=== PATIENT | male | born 1955 | race Caucasian/White ===

== ENCOUNTER → 2023-08-14 | Outpatient (CLI) | payer MEDICARE ==
[2023-08-14 20:57] LABS: ALT 16 U/L (10-49); AST 20 U/L (14-35); Albumin 4.3 g/dL (3.8-4.9); Albumin/Globulin Ratio 1.79 Ratio (1.60-3.17); Alkaline Phosphatase 76 U/L (41-126); BUN/Creat Ratio 14.08 Ratio (12.00-20.00); Blood Urea Nitrogen 18.3 mg/dL (9.0-27.0); Calcium 9.3 mg/dL (8.7-10.3); Carbon Dioxide 18.9 mmol/L (21.6-31.8); Chloride 104 mmol/L (96-109); Globulin 2.4 g/dL (1.6-3.3); Glucose 116 mg/dL (70-110); Potassium 4.5 mmol/L (3.5-5.5); Sodium 138 mmol/L (135-145); Total Bilirubin 1.1 mg/dL (0.3-1.2); Total Protein 6.7 g/dL (6.2-8.2)
== END | disposition home or self-care (01) ==
LOC: LABWHC1 13:54
PROVIDERS: ATTEND Internal Medicine Interventional Cardiology
DX: I48.11 Longstanding persistent atrial fibrillation (principal)
CPT/HCPCS: 36415; 80053; 84443

== ENCOUNTER 2023-09-11 05:57 | Day surgery (SDC) | payer MEDICARE ==
[~2023-09-11 05:57] MED LIST: LACTATED RINGERS 1,000 ML IV SCH; SODIUM CHLORIDE 0.9% 1,000 ML IV SCH
[2023-09-11] MEDS: LIDOCAINE 1% (10MG/ML) FOR IV START INTRADERMA PRN (06:46)
[2023-09-11] MEDS: SODIUM CHLORIDE 0.9% 500 ML 500 ML IV SCH (06:47)
[2023-09-11] MEDS: IV FLUID CONTINUATION 500 ML IV ONE (06:47)
[2023-09-11] MEDS: BENZOCAINE SPRAY 1 CAN TOPICAL ONE (07:10)
[2023-09-11] MEDS ORDERED: PROPOFOL 10 MG/ML 20 ML VIAL IV ONE (07:15)
[2023-09-11 07:19] VITALS: TEMP 97.8
--- NOTE | 2023-09-11 07:36 | P.PCN ---
Date of Procedure: 09/11/23 Description of Procedure: Indication: Atrial fibrillation Procedure Description: After explaining the procedure to the patient, it's risk and complications, blood pressure, heart rate and O2 saturation were monitored. The throat was sprayed with Cetacaine. Patient received sedation per anesthesia department. The probe was introduced into the esophagus without difficulty. Images were obtained. Following that, the probe was removed. There was no immediate complication. Findings: The left atrial size is mildly dilated, left atrial appendage is normal. Spontaneous contrast was noted. The left ventricle systolic function is moderately impaired with global hypokinesis and ejection fraction of 35 to 40%. The aortic valve, mitral valve and tricuspid valve appears to be normal. No pericardial fusion was noted. Descending thoracic aorta appears to be normal. Contrast bubble study revealed no shunting across the interatrial septum. Doppler: Pulse wave and color Doppler were obtained, and revealed mild to moderate multi jet mitral regurgitation with mild tricuspid regurgitation. There was no shunting by color Doppler study. Conclusion: 1. Mildly dilated left atrium with normal appearance of the left atrial appendage and spontaneous contrast 2. Moderate global hypokinesis of the left ventricle 3. Mild to moderate mitral regurgitation 4. Mild tricuspid regurgitation 5. No shunting across the interatrial septum Cardioversion: After obtaining HARI and sedated state synchronized biphasic cardioversion using 150 J was performed with jehovah's witness of sinus mechanism. There was no immediate complications.
[2023-09-11] MEDS: SODIUM CHLORIDE 0.9% 1,000 ML IV SCH (08:00)
[2023-09-11] MEDS: IV FLUID CONTINUATION 700 ML IV ONE (08:37)
[2023-09-11 08:40] VITALS: BP 110/73; PULSE 57; RESP 18
[2023-09-11] MEDS ORDERED: METOPROLOL SUCCINATE (ER) 50 MG TAB.ER.24H PO SCH (21:00)
[2023-09-11] MEDS ORDERED: ATORVASTATIN 40 MG TAB PO SCH (21:00)
[2023-09-12] MEDS ORDERED: RIVAROXABAN 20 MG TAB PO SCH (09:00)
[2023-09-12] MEDS ORDERED: AMIODARONE 200 MG TAB PO SCH (09:00)
== END 2023-09-11 08:52 | disposition home or self-care (01) ==
LOC: OR 05:57
PROVIDERS: ATTEND Internal Medicine Interventional Cardiology
DX: I08.1 Rheumatic disorders of both mitral and tricuspid valves (principal); E78.5 Hyperlipidemia, unspecified; I25.10 Atherosclerotic heart disease of native coronary artery without angina pectoris; I48.0 Paroxysmal atrial fibrillation; I71.43 Infrarenal abdominal aortic aneurysm, without rupture; I42.8 Other cardiomyopathies; Z79.02 Long term (current) use of antithrombotics/antiplatelets; Z79.82 Long term (current) use of aspirin; Z88.0 Allergy status to penicillin; Z88.1 Allergy status to other antibiotic agents; Z88.8 Allergy status to other drugs, medicaments and biological substances; Z79.01 Long term (current) use of anticoagulants; Z87.891 Personal history of nicotine dependence
CPT/HCPCS: 93312; 93320; 93325; 92960; J2704

== ENCOUNTER → 2023-10-10 | Outpatient (CLI) | payer MEDICARE ==
[2023-10-10 15:25] LABS: ALT 23 U/L (10-49); AST 23 U/L (14-35); Albumin 4.4 g/dL (3.8-4.9); Albumin/Globulin Ratio 1.76 Ratio (1.60-3.17); Alkaline Phosphatase 69 U/L (41-126); BUN/Creat Ratio 12.08 Ratio (12.00-20.00); Blood Urea Nitrogen 15.7 mg/dL (9.0-27.0); Calcium 9.1 mg/dL (8.7-10.3); Carbon Dioxide 21.3 mmol/L (21.6-31.8); Chloride 104 mmol/L (96-109); Chol/HDL Ratio 3.13 Ratio; Globulin 2.5 g/dL (1.6-3.3); Glucose 98 mg/dL (70-110); Potassium 4.1 mmol/L (3.5-5.5); Sodium 138 mmol/L (135-145); Total Bilirubin 0.8 mg/dL (0.3-1.2); Total Protein 6.9 g/dL (6.2-8.2); VLDL Calculation 14.18 mg/dL (5.00-40.00)
[2023-10-10 15:49] LABS: Basophils # (A) 0.03 X 10*3/uL (0.00-0.10); Basophils % (A) 0.7 %; Eosinophils # (A) 0.01 X 10*3/uL (0.04-0.35); Eosinophils % (A) 0.2 %; HCT 51.2 % (39.6-50.0); HGB 17.2 g/dL (13.0-17.0); Lymphocytes # (A) 1.13 X 10*3/uL (0.90-5.00); Lymphocytes % (A) 24.6 %; MCH 34.5 pg (27.0-32.0); MCHC 33.6 g/dL (32.0-37.0); MCV 102.8 FL (80.0-97.0); Mean Platelet Volume 12.3 FL (9.5-12.2); Monocytes # (A) 0.65 X 10*3/uL (0.20-1.00); Monocytes % (A) 14.2 %; NRBC Per 100 WBC 0 X 10*3/uL (0.00-0.01); Neutrophils # (A) 2.76 X 10*3/uL (1.80-7.70); Neutrophils % (A) 60.1 %; Platelet Count 82 X 10*3/uL (140-440); RBC 4.98 X 10*6/uL (4.40-5.60); RBC Morphology Normal (Normal); RDW 13.5 % (11.5-14.5); WBC 4.59 X 10*3/uL (4.50-10.00)
== END | disposition home or self-care (01) ==
LOC: LABWHC1 08:01
PROVIDERS: ATTEND Internal Medicine Interventional Cardiology
DX: R73.9 Hyperglycemia, unspecified (principal)
CPT/HCPCS: 36415; 80053; 80061; 83036; 83880; 85025

== ENCOUNTER 2023-11-18 10:48 | Inpatient (IN) | payer MEDICARE ==
[~2023-11-18 10:48] MED LIST changes: +CLOPIDOGREL 75 MG TAB ONE; +HEPARIN SODIUM 1,000 UN/ML (10ML VL) ONE; -LACTATED RINGERS 1,000 ML IV SCH; +LIDOCAINE 1% (PF) 10 MG/ML (30 ML SDV) ONE; +SODIUM CHLORIDE 0.9% 1,000 ML BAG ONE; -SODIUM CHLORIDE 0.9% 1,000 ML IV SCH; +SODIUM CHLORIDE 0.9% 500 ML BAG ONE; +VERAPAMIL 2.5 MG/ML 4 ML VIAL ONE; +fentaNYL (PF) 50 MCG/ML 2 ML AMP ONE
[2023-11-18] MEDS: IOPAMIDOL-370 200ML BTL INJ ONE (10:48)
[2023-11-18] MEDS ORDERED: METOPROLOL TARTRATE 50 MG TAB ONE (20:55)
[2023-11-18] MEDS ORDERED: SACUBITRIL/VALSARTAN 24 MG-26 MG TABLET PO ONE (20:56)
[2023-11-18] MEDS ORDERED: ATORVASTATIN 40 MG TAB ONE (20:56)
[2023-11-18] MEDS ORDERED: HYDROcodone/APAP 5-325MG 1 EACH TAB ONE (21:05)
[2023-11-19] MEDS ORDERED: DAPAGLIFLOZIN PROPANEDIOL 5 MG TABLET ONE (07:17)
[2023-11-19] MEDS ORDERED: SACUBITRIL/VALSARTAN 24 MG-26 MG TABLET PO ONE (07:17)
[2023-11-19] MEDS ORDERED: ASPIRIN 81 MG ONE (07:17)
[2023-11-19] MEDS ORDERED: CLOPIDOGREL 75 MG TAB ONE (07:18)
[2023-11-19] MEDS ORDERED: METOPROLOL TARTRATE 50 MG TAB ONE (07:18)
--- NOTE | 2023-12-27 14:16 | CC ---
CARDIAC CATHETERIZATION REPORT Mr. Aranda is a 68-year-old male, known history of hypertension, hyperlipidemia, history of cardiomyopathy and atrial fibrillation, who had a drop on his ejection fraction on a stress test and in view of that, recommendation made regarding coronary angiography. The procedure as well as risks and complications were discussed with the patient, who was in full understanding and agreement. PROCEDURE DESCRIPTION: The patient was brought to the labor economics professor in a fasting, semi-sedated state after receiving fentanyl and Benadryl. Using Xylocaine anesthesia and Seldinger technique, a 6-Pashto sheath was introduced in the right radial artery. Selective right and left coronary angiography performed using 5-Pashto 4-bend right and left chest catheters. Multiple views of the coronary artery including terrell-axial views were obtained. The right Celestino was used to cross the aortic valve. Images of the coronary arteries were performed. PCI: After removing the catheter, a 6-Pashto AL1 guiding catheter was introduced and after cannulating the right coronary ostium, a 0.014 balanced medium weight J-wire was advanced across the lesion, positioned distally. Subsequently, a 2.5 x 12 mm NC Trek balloon was advanced and multiple inflations at 8 atmospheres were done. Following that, the balloon was removed and a [place] Eye IVUS catheter was introduced and that revealed calcified lesion of moderate degree with a landing zone measuring 3 to 3.5 mm in diameter. The patient had diffuse disease in the mid and distal segment of the RCA as well. After removing the IVUS catheter, a 2.75 x 28 mm Xience Skypoint stent was deployed and post dilated to 16 atmospheres. After removing the balloon, repeat IVUS imaging was performed. Subsequently, a 3.5 x 20 mm NC Trek balloon was advanced and two inflations at 10 atmospheres were done. After the last inflation, after appropriate wait, the balloon and the guidewire were withdrawn back in the guiding catheter. Images were obtained. Repeated those images, revealed stable successful stenting. At that point, the guiding catheter, the balloon, and the guidewire removed. The sheath was removed. Hemostasis was obtained with deployment of the TR band. There was no immediate complication. The patient was returned to his room in stable condition. Of note, the patient received 7000 units of intravenous heparin, his ACT was followed. He received an oral loading dose of clopidogrel. He had no significant chest discomfort or EKG changes with the inflations. FINDINGS: 1. Fluoroscopy: There was significant calcification involving the LAD and the right coronary artery. 2. Left main: This is a short-sized vessel bifurcating into left circumflex, left anterior descending artery. Left main coronary artery has no significant obstructive disease. 3. Left anterior descending artery: This is a large-sized vessel reaching to the apex with a wraparound apex segment giving rise to a moderately-sized diagonal branch in mid segment. The LAD at the takeoff of the first septal design engineering intern has an eccentric 20% to 30% plaque, the rest of the vessel has no high-grade stenosis. 4. Left circumflex: This is a large nondominant vessel giving rise to a large obtuse marginal branch, the obtuse marginal branch in the proximal segment has a tubular lesion of about 30% without any significant obstructive disease. 5. Right coronary artery: This is a large dominant vessel bifurcating into PDA and posterolateral segment branches. The proximal mid segment of the RCA has a 99% stenosis and sequential lesion. Subsequently, the vessel is diffusely diseased. There was no significant flow into the PDA. 6. Collaterals: There is collateral from the left anterior descending artery and the left circumflex toward the right PDA and PLV. LEFT VENTRICULOGRAM: Not performed. HEMODYNAMICS: There was no gradient across the aortic valve. The left ventricular end-diastolic pressure was 12 to 16 mmHg. CONCLUSION: 1. Severe obstructive disease in the long segment of the RCA. 2. Mild disease in the proximal LAD and moderate disease in the first obtuse marginal branch. 3. Successful stenting of the proximal mid segment of the RCA with reduction of stenosis from 99% to less than 5% with diffuse intimal disease in the mid and distal segment. RECOMMENDATIONS: The patient will be continued on aspirin and Plavix for 1 week, then we will stop the aspirin and continue on Plavix and anticoagulation in addition to aggressive coronary risk modification attempting to maintain LDL below 70 mg/dL. Those findings and recommendations were discussed with the patient and his family, and they are in full understanding and agreement. Duration of procedure is 49 minutes. [id number] / IJN: [id number] /
== END 2023-11-19 10:08 | disposition home or self-care (01) | DRG 287 ==
LOC: 6NMEDSUR 10:48
PROVIDERS: ADMIT Internal Medicine Interventional Cardiology; ATTEND Internal Medicine Interventional Cardiology
PROC: 4A023N7 Measurement of Cardiac Sampling and Pressure, Left Heart, Percutaneous Approach (ICD-10-PCS; principal; 2023-11-18 07:00)
PROC: B2111ZZ Fluoroscopy of Multiple Coronary Arteries using Low Osmolar Contrast (ICD-10-PCS; 2023-11-18 07:00)
PROC: 4A02XM4 Measurement of Cardiac Total Activity, External Approach (ICD-10-PCS; 2023-11-18 07:00)
DX: I25.10 Atherosclerotic heart disease of native coronary artery without angina pectoris (principal); I10 Essential (primary) hypertension; I08.1 Rheumatic disorders of both mitral and tricuspid valves; I48.91 Unspecified atrial fibrillation; E78.00 Pure hypercholesterolemia, unspecified; I73.9 Peripheral vascular disease, unspecified; I42.9 Cardiomyopathy, unspecified; Z88.1 Allergy status to other antibiotic agents; Z88.8 Allergy status to other drugs, medicaments and biological substances
CPT/HCPCS: 92978; 93458

== ENCOUNTER → 2024-02-21 | Outpatient (CLI) | payer MEDICARE ==
[2024-02-21 10:31] LABS: HCT 48.8 % (39.6-50.0); HGB 16.8 g/dL (13.0-17.0); MCH 35.5 pg (27.0-32.0); MCHC 34.4 g/dL (32.0-37.0); MCV 103.2 FL (80.0-97.0); Mean Platelet Volume 11.8 FL (9.5-12.2); NRBC Per 100 WBC 0 X 10*3/uL (0.00-0.01); Platelet Count 118 X 10*3/uL (140-440); RBC 4.73 X 10*6/uL (4.40-5.60); RDW 12.6 % (11.5-14.5); WBC 6.66 X 10*3/uL (4.50-10.00)
[2024-02-21 10:47] LABS: Blood Urea Nitrogen 16.9 mg/dL (9.0-27.0); Carbon Dioxide 20.4 mmol/L (21.6-31.8); Chloride 107 mmol/L (96-109); Potassium 4.6 mmol/L (3.5-5.5); Sodium 139 mmol/L (135-145)
== END | disposition home or self-care (01) ==
LOC: LABPAT 07:20
PROVIDERS: ATTEND Internal Medicine Clinical Cardiac Electrophysiology
DX: Z01.812 Encounter for preprocedural laboratory examination (principal); I48.11 Longstanding persistent atrial fibrillation
CPT/HCPCS: 80051; 82565; 84520; 85027

== ENCOUNTER 2024-02-24 05:32 | Day surgery (SDC) | payer MEDICARE ==
[2024-02-24] MEDS: SODIUM CHLORIDE 0.9% 1,000 ML IV SCH (06:34)
[2024-02-24] MEDS: IV FLUID CONTINUATION 1,000 ML IV ONE (06:34)
[2024-02-24 06:35] LABS: Basophils # (A) 0.1 k/uL (0-0.2); Basophils % (A) 1 %; Eosinophils # (A) 0.3 k/uL (0-0.7); Eosinophils % (A) 4 %; HCT 51.5 % (39.0-53.0); HGB 17.1 gm/dL (13.0-17.5); Lymphocytes # (A) 2.2 k/uL (1.0-4.8); Lymphocytes % (A) 31 %; MCH 35.5 pg (25.0-35.0); MCHC 33.2 g/dL (31.0-37.0); MCV 107.1 fL (80.0-100.0); Macrocytosis Moderate; Mean Platelet Volume 8.5; Monocytes # (A) 0.4 k/uL (0-1.0); Monocytes % (A) 6 %; Neutrophils # (A) 4.1 k/uL (1.3-7.7); Neutrophils % (A) 57 %; Platelet Count 112 k/uL (150-450); RBC 4.81 m/uL (4.30-5.90); RDW 12.5 % (11.5-15.5); WBC 7.2 k/uL (3.8-10.6)
[2024-02-24 06:48] LABS: ALT 21 U/L (4-49); AST 22 U/L (17-59); African American GFR (CKD) 88 (>60 ml/min/1.73 sqM); Albumin 4.5 g/dL (3.5-5.0); Alkaline Phosphatase 82 U/L (38-126); Anion Gap 9 mmol/L; Blood Urea Nitrogen 17 mg/dL (9-20); Calcium 9.4 mg/dL (8.4-10.2); Carbon Dioxide 22 mmol/L (22-30); Chloride 109 mmol/L (98-107); Glucose 97 mg/dL (74-99); Non-African American GFR(CKD) 77 (>60 ml/min/1.73 sqM); Potassium 4.4 mmol/L (3.5-5.1); Sodium 140 mmol/L (137-145); Total Bilirubin 1.2 mg/dL (0.2-1.3); Total Protein 7.7 g/dL (6.3-8.2)
[2024-02-24] MEDS: HEPARIN SOD,PORK IN 0.45% NACL 25,000 UNIT in 0.45% NACL 1 250ML.BAG IV ONE (07:36)
[2024-02-24] MEDS: LIDOCAINE 1% INJ 10MG/ML (20 ML MDV) SQ ONE (08:10)
[2024-02-24] MEDS: IOPAMIDOL-370 100ML BTL INJ ONE (10:06)
--- NOTE | 2024-02-24 10:45 | P.EPPROC ---
- EP Procedure Note Electrophysiology Procedure Note: PROCEDURE A. fib ablation with PVI, left atrial septal ablation DIAGNOSIS Persistent atrial fibrillation, symptomatic, refractory to therapy and associated cardiomyopathy RESULT No left atrial appendage mass seen on intracardiac echo, mildly enlarged left atrium, right atrial enlargement, normal LV function Very complex right pulmonary venous anatomy with complex branching pattern of right inferior, right middle and right superior pulmonary veins Large left inferior pulmonary vein Successful A. fib ablation/pulmonary vein isolation of all veins using cryo- ablation Complete entrance block in all 4 veins confirmed Left atrial septal ablation No evidence for phrenic nerve injury Esophageal deflection YES Electrical cardioversion with a synchronized shock across the chest YES PROCEDURE DETAILS Written informed consent prior to procedure. Patient brought to the EP lab. General anesthesia given. Heparin administered. ACT maintained above 300 seconds Both groins prepped and draped per protocol and venous sheaths placed. Esophagus intubated, circa catheter for temperature monitoring an endoscope for possible esophageal deflection. Phrenic nerve monitoring performed. Esophageal temperature monitoring performed. Esophageal deflection performed if circa catheter overlapping with the balloon or circa temperature less than 27.5C Intracardiac echocardiography performed. Pericardium evaluated. Left atrial appendage evaluated. Left atrium evaluated along with pulmonary veins Transseptal catheterization performed under fluoroscopic guidance and intracardiac echo guidance Cryoablation sheath exchanged, balloon catheter along with achieve catheter placed in the left atrium. Pulmonary veins isolated in the following sequence: Left superior pulmonary vein followed by left inferior pulmonary vein, followed by right inferior pulmonary vein and lastly right superior pulmonary vein. Phrenic nerve stimulation along with capture thresholds within the SVC and right superior pulmonary vein to identify the phrenic nerve proximity to the cryo- balloon. Pulmonary veins isolated and confirmed with entrance and exit block. Phrenic nerve integrity confirmed at the end of the procedure Ablation of the left atrial septum performed with cannulation of the superior branch of the right inferior or the inferior branch of the right superior vein to achieve ablation of the posterior septum of the left atrium. Ablation of electrograms confirmed Electrical cardioversion performed for persistence of atrial fibrillation despite successful ablation. Diagnostic catheters for the high right atrium, His bundle, coronary sinus placed. LA and RA pressures recorded LA pressure: 14/10/09 Diagnostic EP study with coronary sinus pacing and recording Baseline measurements: In sinus rhythm AV node Wenckebach block 340 ms, AH 91, HV 50 ms WI interval 189 ms, QRS 123 ms and QT interval 450 ms Venous sheaths were removed and hemostasis assured with a closure device. Patient extubated and transferred to recovery Increase procedural time During ablation multiple attempts had to be made to move the esophagus a safe distance of the from the pulmonary vein draining cryoablation, to avoid excessive thermal cooling of the esophagus This took extra time and effort to keep the esophagus a safe distance away from the cryoablation balloon. This procedure took extra long simply for the pulmonary veins on account of an extremely complex right-sided pulmonary venous anatomy. While the patient had right inferior, right middle and right superior pulmonary veins the anatomy, the branching pattern and the takeoff and angulations were extremely unusual especially for the right middle pulmonary vein. In addition the left-sided veins were large and required multiple attempts for good occlusion. 2 lesions each were delivered 1 more anteriorly and the other more posteriorly simply because of the size of the pulmonary vein, to cover the antrum of each vein PROCEDURES PERFORMED Diagnostic EP study CS pacing and recording Left and right transseptal catheterization Catheter the mapping of the tachycardia Intracardiac echocardiography Pulmonary vein isolation with transseptal and comprehensive EPS, [id number] Extended procedure duration Linear ablation, left atrium, +[id number] Electrical cardioversion with a synchronized shock across the chest [id number]
--- NOTE | 2024-02-24 10:47 | P.PRLE ---
RE: Hubert Aranda Dear Nanda Hubert underwent an EP study and ablation of his pulmonary veins and the left atrial septum. He will continue Xarelto without interruption for the next 2 months and then subsequently the decision to be made based on his Mj Vasc score Thank you for entrusting me with the care of the patient Warm regards Sincerely Nilay Dorado
--- NOTE | 2024-02-24 11:01 | P.HPCAR ---
History of Present Illness This is Dr. Dorado dictating an H/P on this patient The patient was interviewed and examined IMPRESSION / ASSESSMENT: Persistent atrial fibrillation with associated cardiomyopathy Symptoms of tiredness and fatigue Difficult rhythm control with medical treatment Coronary artery disease single-vessel stenting to the RCA in the past On guideline directed heart failure medications and anticoagulation PLAN: A-fib ablation, continue anticoagulation HPI History of atrial fibrillation for over 1 year but over the last 1 year atrial fibrillation has been difficult to control and successfully maintain sinus rhythm In addition he has had coronary artery status post stenting to the RCA During atrial fibrillation he had associated cardiomyopathy with global hypokinesis His symptoms include tiredness and fatigue Denies any fever chills cough expectoration Denies any syncope chest pain angina ROS: No fever chills or rigors, no cough, phlegm or expectoration, no nausea, vomiting or diarrhea, no hematuria, dysuria, no musculoskeletal complaints, no strokes or seizures, no skin lesions. EXAMINATION: 138/83 mmHg pulse rate in the 70s afebrile Breath sounds are clear no rhonchi no crackles Heart sounds no murmurs no gallop no rub No JVD No lower extremity edema REVIEW OF LABS, ECG & MEDICAL DATA White count 7.2 thousand, hemoglobin 17.1 Electrolytes normal renal function normal liver function normal TSH normal at 1.6 Physical Exam Vitals: Vital Signs Temp Pulse Pulse Resp BP Pulse Ox 02/24/24 10:45 53 L 16 133/75 100 02/24/24 10:28 97 F L 71 16 129/78 100 02/24/24 06:32 97.7 F 55 L 18 138/83 97 Intake and Output 02/23/24 02/24/24 02/24/24 22:59 06:59 14:59 Intake Total 20 843 Balance 20 843 Intake: IV 20 843 Other: Weight 110.8 kg Past Medical History Past Medical History: Coronary Artery Disease (CAD), COPD, Deep Vein Thrombosis (DVT), GERD/Reflux, Hyperlipidemia, Hypertension, Myocardial Infarction (NM), Pulmonary Embolus (PE) Additional Past Medical History / Comment(s): DVT LEFT. LEFT COMPARTMENTAL SYNDROME POST DVT AND HAS PROBLEMS WALKING, USES CANE. RIGHT LUNG PE. Last Myocardial Infarction Date:: UNKNOWN DATE History of Any Multi-Drug Resistant Organisms: None Reported Past Surgical History: Heart Catheterization With Stent Additional Past Surgical History / Comment(s): RIGHT LEG/ANKLE DEBRIDEMENT. HERNIA (INFANT). Past Anesthesia/Blood Transfusion Reactions: No Reported Reaction Date of Last Stent Placement:: 11/18/2023 Smoking Status: Former smoker - Past Family History Mother Family Medical History: No Reported History, Coronary Artery Disease (CAD) Father Family Medical History: Coronary Artery Disease (CAD), CVA/TIA Additional Family Medical History / Comment(s): sepsis Physical Examination Vital Signs Temp Pulse Pulse Resp BP Pulse Ox 02/24/24 10:45 53 L 16 133/75 100 02/24/24 10:28 97 F L 71 16 129/78 100 02/24/24 06:32 97.7 F 55 L 18 138/83 97 Intake and Output 02/23/24 02/24/24 02/24/24 22:59 06:59 14:59 Intake Total 20 843 Balance 843 Intake: IV 843 Other: Weight 110.8 kg Results 02/24/24 06:05 02/24/24 06:05 Cardiac Enzymes 02/24/24 Range/Units 06:05 AST 22 (17-59) U/L CBC 02/24/24 Range/Units 06:05 WBC 7.2 (3.8-10.6) k/uL RBC 4.81 (4.30-5.90) m/uL Hgb 17.1 (13.0-17.5) gm/dL Hct 51.5 (39.0-53.0) % Plt Count 112 L (150-450) k/uL Comprehensive Metabolic Panel 02/24/24 Range/Units 06:05 Sodium 140 (137-145) mmol/L Potassium 4.4 (3.5-5.1) mmol/L Chloride 109 H (98-107) mmol/L Carbon Dioxide 22 (22-30) mmol/L BUN 17 (9-20) mg/dL Creatinine 1.00 (0.66-1.25) mg/dL Glucose 97 (74-99) mg/dL Calcium 9.4 (8.4-10.2) mg/dL AST 22 (17-59) U/L ALT 21 (4-49) U/L Alkaline Phosphatase 82 (38-126) U/L Total Protein 7.7 (6.3-8.2) g/dL Albumin 4.5 (3.5-5.0) g/dL Current Medications Generic Name Dose Route Start Last Admin Trade Name Freq PRN Reason Stop Dose Admin Acetaminophen 650 mg 02/24/24 10:34 Acetaminophen Tab 325 Mg Tab PO 03/25/24 10:33 Q6HR PRN Mild Pain (Scale 1 to 3) Acetaminophen 1,000 mg/ IV 100 mls @ 400 mls/hr 02/24/24 12:00 Solution IVPB 02/24/24 12:14 ONCE ONE Sodium Chloride 12 ml 02/24/24 10:34 Sodium Chloride 0.9% Flush 10 Ml Syringe IV 03/25/24 10:33 Q12HR PRN Line Flush Intake and Output 02/23/24 02/24/24 02/24/24 22:59 06:59 14:59 Intake Total 20 843 Balance 20 843 Intake: IV 20 843 Other: Weight 110.8 kg 02/24/24 06:05 02/24/24 06:05
[2024-02-24] MEDS: LACTATED RINGERS 1,000 ML IV SCH (13:28)
[2024-02-24] MEDS: ACETAMINOPHEN IV (For NPO) 1,000 MG in EMPTY BAG 1 BAG IVPB ONE (14:35)
[2024-02-24] MEDS: ACETAMINOPHEN TAB 325 MG TAB PO PRN (20:45)
[2024-02-24] MEDS: ATORVASTATIN 40 MG TAB PO SCH (20:47)
[2024-02-24] MEDS: METOPROLOL TARTRATE 50 MG TAB PO SCH (20:47)
[2024-02-24] MEDS: SACUBITRIL/VALSARTAN 24 MG-26 MG TABLET PO SCH (20:47)
[2024-02-25 07:56] VITALS: BP 133/74; PULSE 51; RESP 16; TEMP 97.9
[2024-02-25] MEDS: ASPIRIN 81 MG PO SCH (08:55)
[2024-02-25] MEDS: RIVAROXABAN 20 MG TAB PO SCH (08:56)
[2024-02-25] MEDS: CLOPIDOGREL 75 MG TAB PO SCH (08:57)
[2024-02-25] MEDS: DAPAGLIFLOZIN PROPANEDIOL 5 MG TABLET PO SCH (08:59)
== END 2024-02-25 12:21 | disposition home or self-care (01) ==
LOC: CATHEP 05:32 → 6NMEDSUR 10:28 → CATHEP 02-25 12:21
PROVIDERS: ATTEND Internal Medicine Clinical Cardiac Electrophysiology
DX: I48.19 Other persistent atrial fibrillation (principal); I11.0 Hypertensive heart disease with heart failure; I50.9 Heart failure, unspecified; I42.8 Other cardiomyopathies; I25.10 Atherosclerotic heart disease of native coronary artery without angina pectoris; I25.2 Old myocardial infarction; E78.5 Hyperlipidemia, unspecified; J44.9 Chronic obstructive pulmonary disease, unspecified; I71.43 Infrarenal abdominal aortic aneurysm, without rupture; K21.9 Gastro-esophageal reflux disease without esophagitis; Z79.01 Long term (current) use of anticoagulants; Z86.711 Personal history of pulmonary embolism; Z86.718 Personal history of other venous thrombosis and embolism; Z87.891 Personal history of nicotine dependence; Z95.5 Presence of coronary angioplasty implant and graft; Z88.0 Allergy status to penicillin; Z88.1 Allergy status to other antibiotic agents; Z88.8 Allergy status to other drugs, medicaments and biological substances; Z79.02 Long term (current) use of antithrombotics/antiplatelets; Z79.51 Long term (current) use of inhaled steroids
CPT/HCPCS: 92960; 93656; 93657; 86900; 86901; 80053; 84443; 85025; 86850; J2003; J0131; Q9967; J1644

== ENCOUNTER 2024-04-26 11:53 | Emergency (ER) | payer MEDICARE ==
[2024-04-26 11:58] VITALS: TEMP 98.2
[2024-04-26] MEDS ORDERED: RX INFO: IV CONTRAST WAS GIVEN 1 EACH MISC MISCELLANE PRN (12:15)
--- NOTE | 2024-04-26 12:21 | ED ---
Extremity Problem HPI - General Chief complaint: Extremity Injury, Lower Stated complaint: right foot infection Time Seen by Provider: 04/26/24 11:59 Source: patient, RN notes reviewed Mode of arrival: ambulatory Limitations: no limitations - History of Present Illness Initial comments: This is a 68-year-old male who presents to the emergency department for right leg pain and discoloration. Reports some discomfort to the right foot for the last couple of days and this morning started to notice discoloration to the outside of the right foot. He is still able to ambulate but states that it is uncomfortable. Denies any injuries. Reports a history of compartment syndrome and a blood clot in the artery of that leg, causing him to almost lose that extremity. States that this is his largest concern. He had a stent put in his right femoral artery in [place] in 2019. States that he does still follow with Dr. Serna for regular checkups here. - Related Data Home Medications Medication Instructions Recorded Confirmed Acetaminophen [Tylenol Extra 500 - 1,000 mg PO Q6H PRN 09/09/23 02/24/24 Strength] Albuterol Inhaler [Ventolin Hfa 1 puff INHALATION DIRECTED PRN 09/09/23 02/24/24 Inhaler] Aspirin [Adult Low Dose Aspirin EC] 81 mg PO DAILY 09/09/23 02/24/24 Atorvastatin [Lipitor] 40 mg PO HS 09/09/23 02/24/24 Cholecalciferol (Vitamin D3) 125 mcg PO DAILY 09/09/23 02/24/24 [Vitamin D3 (125 MCG = 5,000 IU)] Cyanocobalamin (Vitamin B-12) 100 mcg PO DAILY 09/09/23 02/24/24 [Vitamin B-12] Famotidine [Pepcid AC] 10 mg PO DAILY PRN 09/09/23 02/24/24 Rivaroxaban [Xarelto] 20 mg PO QAM 09/09/23 02/24/24 Clopidogrel [Plavix] 75 mg PO DAILY 02/20/24 02/24/24 Cyclobenzaprine [Flexeril] 10 mg PO TID PRN 02/20/24 02/24/24 Empagliflozin [Jardiance] 10 mg PO DAILY 02/20/24 02/24/24 Metoprolol Tartrate [Lopressor] 50 mg PO BID 02/20/24 02/24/24 Sacubitril/Valsartan [Entresto 24 1 tab PO BID 02/20/24 02/24/24 mg-26 mg Tablet] Unk Sildenafil 1 tab PO DIRECTED PRN 02/20/24 02/24/24 Allergies Allergy/AdvReac Type Severity Reaction Status Date / Time bee venom protein (honey bee) Allergy Anaphylaxis Verified 02/24/24 06:17 pineapple Allergy facial rash Verified 02/24/24 06:17 amoxicillin [From Augmentin] AdvReac Nausea & Verified 02/24/24 06:17 Vomiting & Diarrhea clavulanic acid AdvReac Nausea & Verified 02/24/24 06:17 [From Augmentin] Vomiting & Diarrhea Review of Systems ROS Statement: Those systems with pertinent positive or pertinent negative responses have been documented in the HPI. ROS Other: All systems not noted in ROS Statement are negative. Past Medical History Past Medical History: Coronary Artery Disease (CAD), COPD, Deep Vein Thrombosis (DVT), GERD/Reflux, Hyperlipidemia, Hypertension, Myocardial Infarction (SC), Pulmonary Embolus (PE) Additional Past Medical History / Comment(s): DVT LEFT. LEFT COMPARTMENTAL SYNDROME POST DVT AND HAS PROBLEMS WALKING, USES CANE. RIGHT LUNG PE. Last Myocardial Infarction Date:: UNKNOWN DATE History of Any Multi-Drug Resistant Organisms: None Reported Additional Past Surgical History / Comment(s): RIGHT LEG/ANKLE DEBRIDEMENT. HERNIA (). Past Anesthesia/Blood Transfusion Reactions: No Reported Reaction Past Psychological History: Depression Smoking Status: Former smoker - Past Family History Mother Family Medical History: No Reported History, Coronary Artery Disease (CAD) Father Family Medical History: Coronary Artery Disease (CAD), CVA/TIA General Exam Limitations: no limitations General appearance: alert, in no apparent distress Head exam: Present: atraumatic, normocephalic, normal inspection Respiratory exam: Present: normal lung sounds bilaterally. Absent: respiratory distress, wheezes, rales, rhonchi, stridor Cardiovascular Exam: Present: regular rate, normal rhythm, normal heart sounds. Absent: systolic murmur, diastolic murmur, rubs, gallop, clicks Extremities exam: Present: other (Right foot is somewhat more dusky compared to the left with dark discoloration on the lateralmost aspect. Pulses are not palpable.) Neurological exam: Present: alert, oriented X3, CN II-XII intact Psychiatric exam: Present: normal affect, normal mood Course Vital Signs 04/26/24 04/26/24 11:54 14:52 Temperature 98.2 F Pulse Rate 67 54 L Respiratory 18 16 Rate Blood Pressure 126/74 120/78 O2 Sat by Pulse 99 98 Oximetry Medical Decision Making - Medical Decision Making This is a 68-year-old male who presents to the emergency department for right foot pain and discoloration. Was pt. sent in by a medical professional or institution? @ -No Did you speak to anyone other than the patient for history? @ -No Did you review nursing and triage notes? @ -Yes, and I agree, it is accurate with regards to the patient's symptoms. Were old charts reviewed? @ -No Differential Diagnosis? @ -Differential Musculoskeletal Muscular strain, contusion, ligament sprain, fracture, arthritis, septic arthritis, bursitis, cellulitis, muscle spasm, nerve compression, DVT, arterial occlusion, herpes zoster, electrolyte abnormality, tumor.... This is not meant to be in all inclusive list EKG interpreted by me (3pts min.)? @ -Not obtained X-rays interpreted by me (1pt min.)? @ -Not obtained CT interpreted by me (1pt min.)? @ -CTA of the right lower extremity obtained. My interpretation identifies occlusion of the right superficial femoral artery stent. U/S interpreted by me (1pt. min.)? @ -Duplex ultrasound of the right lower extremity obtained. My interpretation identifies no evidence of a DVT. What testing was considered but not performed? (CT, X-rays, U/S, labs)? Why? @ -None What meds were considered but not given? Why? @ -None Did you discuss the management of the patient with other professionals? @ -No Did you reconcile home meds? @ -No Was smoking cessation discussed for >3mins.? @ -No Was critical care preformed (if so, how long)? @ -No Were there social determinants of health that impacted care today? How? (Homelessness, low income, unemployed, alcoholism, drug addiction, ramírez sportation, low edu. Level, literacy, decrease access to med. care, prison, rehab)? @ -No Was there de-escalation of care discussed even if they declined? (Discuss DNR or withdrawal of care, Hospice)? @ -No What co-morbidities impacted this encounter? (DM, HTN, Smoking, COPD, CAD, Cancer, CVA, Hep., AIDS, mental health diagnosis, sleep apnea, morbid obesity)? @ -PAD Was patient admitted / discharged? @ -Discharged. On exam his right foot did have some brown discoloration on the lateralmost aspect. Pulses were not easily palpable. On the Doppler they were picked up for a couple of seconds. His foot was however warm and capillary refill was still less than 1 to 2 seconds. CTA of the right lower extremity was obtained. This revealed severe outflow disease in the right lower extremity secondary to an occluded distal right superficial femoral artery stent and severe focal stenosis in the proximal right popliteal artery. He does however have geniculate collaterals and runoff vessels in the anterior and posterior tibial arteries are patent. Given that he does still have collateral flow and is not in any significant distress, discussed that he can follow-up outpatient. However, he was advised that he needs to rest and avoid any excessive activity. He also needs to contact his vascular surgery office first thing tomorrow morning regarding these findings and he was given very strict return parameters in the event anything changes/worsens. Patient expresses understanding and was discharged home in stable condition. Case discussed with ED attending Dr. Hines. Return precautions reviewed in depth, the patient is instructed to return to the emergency department with any new, worsening, or concerning symptoms. Patient verbalized understanding. Undiagnosed new problem with uncertain prognosis? @ -None Drug Therapy requiring intensive monitoring for toxicity (Heparin, Nitro, Insulin, Cardizem)? @ -None Were any procedures done? @ -None Diagnosis/symptom? @ -Occlusion of right superficial femoral artery stent Acute, or Chronic, or Acute on Chronic? @ -Acute Uncomplicated (without systemic symptoms) or Complicated (systemic symptoms)? @ -Uncomplicated Side effects of treatment? @ -None Exacerbation, Progression, or Severe Exacerbation] @ -Not applicable Poses a threat to life or bodily function? @ -Can be limb threatening if not managed - Lab Data Result diagrams: 04/26/24 12:51 04/26/24 12:51 Lab Results 04/26/24 04/26/24 04/26/24 Range/Units 12:51 12:51 12:51 WBC 7.0 (3.8-10.6) k/uL RBC 4.45 (4.30-5.90) m/uL Hgb 15.4 (13.0-17.5) gm/dL Hct 46.2 (39.0-53.0) % MCV 103.8 H (80.0-100.0) fL MCH 34.6 (25.0-35.0) pg MCHC 33.4 (31.0-37.0) g/dL RDW 12.6 (11.5-15.5) % Plt Count 115 L (150-450) k/uL MPV 8.1 Neutrophils % 63 % Lymphocytes % 26 % Monocytes % 5 % Eosinophils % 4 % Basophils % 1 % Neutrophils # 4.4 (1.3-7.7) k/uL Lymphocytes # 1.8 (1.0-4.8) k/uL Monocytes # 0.4 (0-1.0) k/uL Eosinophils # 0.3 (0-0.7) k/uL Basophils # 0.0 (0-0.2) k/uL Macrocytosis Slight PT 16.0 H (10.0-12.5) sec INR 1.5 H (<1.2) APTT 32.5 H (22.0-30.0) sec Sodium 135 L (137-145) mmol/L Potassium 4.1 (3.5-5.1) mmol/L Chloride 106 (98-107) mmol/L Carbon Dioxide 18 L (22-30) mmol/L Anion Gap 11 mmol/L BUN 15 (9-20) mg/dL Creatinine 0.84 (0.66-1.25) mg/dL Est GFR (CKD-EPI)AfAm >90 (>60 ml/min/1.73 sqM) Est GFR (CKD-EPI)NonAf 89 (>60 ml/min/1.73 sqM) Glucose 118 H (74-99) mg/dL Plasma Lactic Acid Freddy (0.7-2.0) mmol/L Calcium 9.5 (8.4-10.2) mg/dL Total Bilirubin 1.3 (0.2-1.3) mg/dL AST 20 (17-59) U/L ALT 18 (4-49) U/L Alkaline Phosphatase 65 (38-126) U/L C-Reactive Protein <0.5 (<1.0) mg/dL Total Protein 6.8 (6.3-8.2) g/dL Albumin 4.1 (3.5-5.0) g/dL 04/26/24 Range/Units 12:51 WBC (3.8-10.6) k/uL RBC (4.30-5.90) m/uL Hgb (13.0-17.5) gm/dL Hct (39.0-53.0) % MCV (80.0-100.0) fL MCH (25.0-35.0) pg MCHC (31.0-37.0) g/dL RDW (11.5-15.5) % Plt Count (150-450) k/uL MPV Neutrophils % % Lymphocytes % % Monocytes % % Eosinophils % % Basophils % % Neutrophils # (1.3-7.7) k/uL Lymphocytes # (1.0-4.8) k/uL Monocytes # (0-1.0) k/uL Eosinophils # (0-0.7) k/uL Basophils # (0-0.2) k/uL Macrocytosis PT (10.0-12.5) sec INR (<1.2) APTT (22.0-30.0) sec Sodium (137-145) mmol/L Potassium (3.5-5.1) mmol/L Chloride (98-107) mmol/L Carbon Dioxide (22-30) mmol/L Anion Gap mmol/L BUN (9-20) mg/dL Creatinine (0.66-1.25) mg/dL Est GFR (CKD-EPI)AfAm (>60 ml/min/1.73 sqM) Est GFR (CKD-EPI)NonAf (>60 ml/min/1.73 sqM) Glucose (74-99) mg/dL Plasma Lactic Acid Freddy 1.2 (0.7-2.0) mmol/L Calcium (8.4-10.2) mg/dL Total Bilirubin (0.2-1.3) mg/dL AST (17-59) U/L ALT (4-49) U/L Alkaline Phosphatase (38-126) U/L C-Reactive Protein (<1.0) mg/dL Total Protein (6.3-8.2) g/dL Albumin (3.5-5.0) g/dL - Radiology Data Radiology results: report reviewed, image reviewed Disposition Clinical Impression: Superficial femoral artery occlusion, Peripheral arterial disease, Occlusion of stent of peripheral artery Disposition: HOME SELF-CARE Instructions (If sedation given, give patient instructions): Peripheral Artery Disease (ED) Additional Instructions: Return to the emergency department with any new, worsening, or concerning symptoms, especially if you notice that the discoloration gets worse, your foot is very painful, or appears much colder than the other foot. You must contact Dr. Serna's office first thing in the morning. Let her know that you were seen here today and the stent in your superficial femoral artery appears occluded, however you do still have some collateral blood flow. Is patient prescribed a controlled substance at d/c from ED?: No Referrals: Domingo Tyler MD [Primary Care Provider] - 1-2 days Angelina Serna DO [STAFF PHYSICIAN] - 1-2 days Time of Disposition: 14:32
[2024-04-26 12:56] LABS: Basophils % (A) 1 %; Eosinophils # (A) 0.3 k/uL (0-0.7); Eosinophils % (A) 4 %; HCT 46.2 % (39.0-53.0); HGB 15.4 gm/dL (13.0-17.5); Lymphocytes # (A) 1.8 k/uL (1.0-4.8); Lymphocytes % (A) 26 %; MCH 34.6 pg (25.0-35.0); MCHC 33.4 g/dL (31.0-37.0); MCV 103.8 fL (80.0-100.0); Macrocytosis Slight; Mean Platelet Volume 8.1; Monocytes # (A) 0.4 k/uL (0-1.0); Monocytes % (A) 5 %; Neutrophils # (A) 4.4 k/uL (1.3-7.7); Neutrophils % (A) 63 %; Platelet Count 115 k/uL (150-450); RBC 4.45 m/uL (4.30-5.90); RDW 12.6 % (11.5-15.5)
[2024-04-26 13:14] LABS: INR 1.5 (<1.2); Partial Thromboplastin Time 32.5 sec (22.0-30.0)
[2024-04-26 13:16] LABS: ALT 18 U/L (4-49); AST 20 U/L (17-59); African American GFR (CKD) >90 (>60 ml/min/1.73 sqM); Albumin 4.1 g/dL (3.5-5.0); Alkaline Phosphatase 65 U/L (38-126); Anion Gap 11 mmol/L; Blood Urea Nitrogen 15 mg/dL (9-20); C Reactive Protein <0.5 mg/dL (<1.0); Calcium 9.5 mg/dL (8.4-10.2); Carbon Dioxide 18 mmol/L (22-30); Chloride 106 mmol/L (98-107); Glucose 118 mg/dL (74-99); Non-African American GFR(CKD) 89 (>60 ml/min/1.73 sqM); Potassium 4.1 mmol/L (3.5-5.1); Sodium 135 mmol/L (137-145); Total Bilirubin 1.3 mg/dL (0.2-1.3); Total Protein 6.8 g/dL (6.3-8.2)
--- NOTE | 2024-04-26 14:03 | CT ---
Right lower extremity. HISTORY: Right leg pain and discoloration. History of stent. COMPARISON: None TECHNIQUE: Multiple axial images are obtained through the right lower extremity according to the CTA protocol and following contrast administration. 3-D postprocessing was performed. FINDINGS: Right lower extremity inflow CTA: There is scattered plaque within the right common and external iliac arteries but no significant sten osis. Outflow CTA right lower extremity: There is moderate scattered plaque throughout the common and superficial femoral artery but no signif icant stenosis. There is a stent distal right superficial femoral artery in the region of the adducto r canal which is completely occluded. There is severe calcified plaque in the proximal popliteal artery resulting in a severe stenosis. The re is faint contrast within the popliteal artery and is filling through geniculate collaterals. Runoff CTA right lower extremity: There is markedly diminished flow and opacification of the runoff vessels. There is markedly diminish ed flow in the runoff vessels but the anterior and posterior tibial arteries appear patent into the f oot. The peroneal artery occludes in the distal calf.. IMPRESSION: 1. No significant inflow disease to the right lower extremity. 2. Severe outflow disease in the right lower extremity secondary to the occluded distal right superfi cial femoral artery stent and severe focal stenosis in the proximal right popliteal artery 3. Faint three-vessel runoff in the right lower extremity presumably supplied by geniculate collatera ls. [facility], , 04/26/2024 2:01 PM
--- NOTE | 2024-04-26 14:16 | US ---
EXAMINATION TYPE: US venous doppler duplex LE RT DATE OF EXAM: 04/26/2024 2:02 PM COMPARISON: NONE CLINICAL INDICATION: Male, 68 years old with history of Leg pain and discoloration; Hx LLE DVT and RL E DVT with compartment syndrome; Patient on thinners, Pain TECHNIQUE: The lower extremity deep venous system is examined utilizing real time linear array sonog raj with graded compression, color doppler sonography, and spectral doppler. SIDE PERFORMED: Right FINDINGS: VESSELS IMAGED: Common Femoral Vein Deep Femoral Vein Greater Saphenous Vein * Femoral Vein Popliteal Vein Small Saphenous Vein * Proximal Calf Veins (* superficial vessels) Right Leg: Negative for DVT, Color Doppler imaging shows patency of the vessels. Spectral waveforms are within normal limits. IMPRESSION: No ultrasound evidence for deep venous thrombosis. [facility], , 04/26/2024 2:13 PM
[2024-04-26 14:53] VITALS: BP 120/78; PULSE 54; RESP 16
== END 2024-04-26 14:53 | disposition home or self-care (01) ==
LOC: EC 11:53
DX: I73.9 Peripheral vascular disease, unspecified (principal); I74.3 Embolism and thrombosis of arteries of the lower extremities; I77.9 Disorder of arteries and arterioles, unspecified; Z87.891 Personal history of nicotine dependence; Z88.0 Allergy status to penicillin; Z91.018 Allergy to other foods; Z91.030 Bee allergy status; Z88.8 Allergy status to other drugs, medicaments and biological substances
CPT/HCPCS: 36415; 80053; 83605; 85025; 85610; 85730; 86140; 93971; 73706; 99284; Q9967

== ENCOUNTER → 2024-05-29 | Day surgery (SDC) | payer MEDICARE ==
[2024-05-26 14:46] VITALS: BMI 31.0
[~2024-05-29] MED LIST changes: +ALPRAZolam 0.25 MG TAB PO PRN; -CLOPIDOGREL 75 MG TAB ONE; -HEPARIN SODIUM 1,000 UN/ML (10ML VL) ONE; -LIDOCAINE 1% (PF) 10 MG/ML (30 ML SDV) ONE; -SODIUM CHLORIDE 0.9% 1,000 ML BAG ONE; -SODIUM CHLORIDE 0.9% 500 ML BAG ONE; -VERAPAMIL 2.5 MG/ML 4 ML VIAL ONE; -fentaNYL (PF) 50 MCG/ML 2 ML AMP ONE
[2024-05-29] MEDS: EMPTY BAG 1 BAG with SODIUM CHLORIDE 0.9% 1,000 ML IV SCH (07:34)
[2024-05-29] MEDS: IV FLUID CONTINUATION 1,000 ML IV ONE (07:35)
[2024-05-29 07:52] LABS: Basophils % (A) 1 %; Eosinophils # (A) 0.3 k/uL (0-0.7); Eosinophils % (A) 5 %; HCT 49.7 % (39.0-53.0); HGB 15.7 gm/dL (13.0-17.5); Lymphocytes # (A) 1.8 k/uL (1.0-4.8); Lymphocytes % (A) 27 %; MCH 33.5 pg (25.0-35.0); MCHC 31.5 g/dL (31.0-37.0); MCV 106.2 fL (80.0-100.0); Macrocytosis Slight; Mean Platelet Volume 8.5; Monocytes # (A) 0.3 k/uL (0-1.0); Monocytes % (A) 5 %; Neutrophils # (A) 4.1 k/uL (1.3-7.7); Neutrophils % (A) 62 %; Platelet Count 118 k/uL (150-450); RBC 4.68 m/uL (4.30-5.90); RDW 12.6 % (11.5-15.5); WBC 6.6 k/uL (3.8-10.6)
[2024-05-29 07:53] VITALS: TEMP 98.3
[2024-05-29 08:02] LABS: African American GFR (CKD) >90 (>60 ml/min/1.73 sqM); Anion Gap 11 mmol/L; Blood Urea Nitrogen 14 mg/dL (9-20); Calcium 9.6 mg/dL (8.4-10.2); Carbon Dioxide 22 mmol/L (22-30); Chloride 105 mmol/L (98-107); Glucose 93 mg/dL (74-99); Non-African American GFR(CKD) 88 (>60 ml/min/1.73 sqM); Potassium 4.4 mmol/L (3.5-5.1); Sodium 138 mmol/L (137-145)
[2024-05-29] MEDS: LIDOCAINE 1% INJ 10MG/ML (20 ML MDV) SQ ONE (09:00)
[2024-05-29] MEDS: VERAPAMIL SYRINGE (5 MG/10 ML) INTRAARTER ONE (09:02)
[2024-05-29] MEDS: NITROGLYCERIN 1000MCG/10ML SYRINGE INTRAARTER ONE (09:02)
[2024-05-29] MEDS: HEPARIN SODIUM 1,000 UN/ML (10ML VL) IVP ONE (09:02)
[2024-05-29] MEDS: fentaNYL (PF) 50 MCG/ML 2 ML AMP IVP ONE (09:02)
[2024-05-29] MEDS: IOPAMIDOL-370 200ML BTL INJ ONE (09:27)
--- NOTE | 2024-05-29 10:16 | IR ---
Fluoroscopy INDICATION: Pain bilateral leg pain FINDINGS: Fluoroscopy time: 1.9 minutes. Total dose area product (DAP) in uGy*m?, mGy*cm? (or similar): 4351.0 Images obtained: 222. Images document aortic runoff. Note is made of obstruction of the superficial femoral arteries and th e distal portion near the obturator canals. Reconstitution by collateral vessels. Distal trifurcation vessels not identified IMPRESSION: 1. Documentation of fluoroscopy. [facility], , 05/29/2024 10:14 AM
--- NOTE | 2024-05-29 12:38 | P.OP ---
Date of Procedure: 05/29/24 Description of Procedure: Preoperative diagnosis: [place] 3 peripheral arterial disease right lower extremity Postoperative diagnosis: Same Procedure: Ultrasound-guided right radial artery access Placement of catheter in infrarenal abdominal aorta, selective second order, from radial approach Aortogram with bilateral lower extremity runoffs Moderate conscious sedation with personal monitoring certified RN administration and personal hemodynamic monitoring for 30 minutes Surgeon: Angelina Serna D.O. EBL: Less than 5 cc IV fluids: See records Urine output: Not measured Drains: None Complications: None immediately apparent Condition: Stable to recovery Operative indication and findings: Patient is 68 a-year-old with peripheral vascular disease. On workup and evaluation was found to have abnormal ABIs prompting recommendations for an angiogram. Risks and benefits including but not limited to bleeding, infection, injury to the vessel, stroke, cardiopulmonary risks and ischemic changes to the extremities were discussed. They seemingly understood this willing to proceed. Procedure in detail: Patient was taken to the special suite and placed in supine position. The right upper extremity was prepped and draped in usual sterile fashion. A preprocedural timeout was performed, all parties were in agreement. Using the ultrasound, the radial artery was identified. The skin overlying was anesthetized with 1% lidocaine plain. The artery was patent without significant calcific disease and a permanent image was stored. Under direct visualization, the artery was accessed and Seldinger technique was used to place a 5 slender sheath. Catheters and wires were then used to selectively place a catheter across the subclavian, into the aortic arch and then selectively in the descending thoracic aorta and down into the abdominal aorta. Aortogram was performed. Catheter was then advanced to the level of the iliac bifurcation. A bilateral lower extremity step-off was performed. After satisfactory images, catheters and wires were removed. The sheath was removed and a TR band was pl aced. Angiographic interpretation: Visualized portion of the aorta appeared normal in course and caliber. Visualized viscera vessels appear normal in course and caliber. The bilateral internal, common, external iliac arteries appear patent with mild disease. The common femoral, profunda femorals bilaterally appear patent without significant disease. Throughout the bilateral superficial femoral arteries there is mild diffuse disease, and lateral of the adductor canal bilaterally there is occlusive disease with reconstitution of the popliteal artery behind the knee on the right and above the knee on the left.The popliteal arteries appear patent without significant disease. On the right, the anterior tibial and posterior tibial appear patent through the ankle, there is no visualization of the peroneal vessel. On the left, the anterior tibial appears patent to the ankle, the posterior tibial and peroneal appear patent to the peroneal occludes midway through the leg. .
[2024-05-29 17:23] VITALS: RESP 14
[2024-05-29 17:28] VITALS: BP 123/72; PULSE 50
== END ==
LOC: CATHCVL 07:03
PROVIDERS: ATTEND Surgery
DX: I73.9 Peripheral vascular disease, unspecified (principal)
CPT/HCPCS: 36200; 75625; 75716; 76937; 80048; 85025; J2003; J3010; J1644; Q9967; J2305

== ENCOUNTER 2024-06-18 07:04 | Day surgery (SDC) | payer MEDICARE ==
[2024-06-17 09:12] VITALS: BMI 30.7
[~2024-06-18 07:04] MED LIST changes: +ALPRAZolam 0.5 MG TAB PO PRN; +ASPIRIN 325 MG TAB PO PRN; +HEPARIN SODIUM,PORCINE (1 ML) 2,500 UNIT in SODIUM CHLORIDE 0.9% 250 ML IRRIGATION PRN; +HEPARIN SODIUM,PORCINE 10,000 UNIT in SODIUM CHLORIDE 0.9% 1,000 ML IRRIGATION PRN; +ZOLPIDEM 5 MG TAB PO PRN
[2024-06-18] MEDS: SODIUM CHLORIDE 0.9% 1,000 ML in EMPTY BAG 1 BAG IV ONE (07:37)
[2024-06-18 07:43] VITALS: RESP 16; TEMP 97.6
[2024-06-18] MEDS: IV FLUID CONTINUATION 1,000 ML IV ONE (07:44)
[2024-06-18 07:59] LABS: African American GFR (CKD) >90 (>60 ml/min/1.73 sqM); Anion Gap 10 mmol/L; Blood Urea Nitrogen 19 mg/dL (9-20); Calcium 9.7 mg/dL (8.4-10.2); Carbon Dioxide 23 mmol/L (22-30); Chloride 106 mmol/L (98-107); Glucose 91 mg/dL (74-99); Non-African American GFR(CKD) 84 (>60 ml/min/1.73 sqM); Potassium 4.1 mmol/L (3.5-5.1); Sodium 139 mmol/L (137-145)
[2024-06-18 08:04] LABS: Basophils # (A) 0.1 k/uL (0-0.2); Basophils % (A) 1 %; Eosinophils # (A) 0.3 k/uL (0-0.7); Eosinophils % (A) 4 %; HCT 48.3 % (39.0-53.0); HGB 16.2 gm/dL (13.0-17.5); Lymphocytes # (A) 1.9 k/uL (1.0-4.8); Lymphocytes % (A) 30 %; MCH 34.5 pg (25.0-35.0); MCHC 33.5 g/dL (31.0-37.0); MCV 103.1 fL (80.0-100.0); Macrocytosis Slight; Mean Platelet Volume 8.4; Monocytes # (A) 0.3 k/uL (0-1.0); Monocytes % (A) 5 %; Neutrophils # (A) 3.6 k/uL (1.3-7.7); Neutrophils % (A) 58 %; Platelet Count 119 k/uL (150-450); RBC 4.69 m/uL (4.30-5.90); RDW 12.5 % (11.5-15.5); WBC 6.2 k/uL (3.8-10.6)
[2024-06-18] MEDS: HEPARIN SODIUM,PORCINE 10,000 UNIT in SODIUM CHLORIDE 0.9% 1,000 ML IRRIGATION ONE (08:48)
[2024-06-18] MEDS: HEPARIN SODIUM,PORCINE (1 ML) 2,500 UNIT in SODIUM CHLORIDE 0.9% 250 ML IRRIGATION ONE (08:49)
[2024-06-18] MEDS: MIDAZOLAM 2 MG/2 ML VIAL IVP ONE ×2 (09:00→09:38)
[2024-06-18] MEDS: fentaNYL (PF) 50 MCG/ML 2 ML AMP IVP ONE ×3 (09:00→09:56)
[2024-06-18] MEDS: LIDOCAINE 1% INJ 10MG/ML (20 ML MDV) SQ ONE (09:05)
[2024-06-18] MEDS ORDERED: SODIUM CHLORIDE 0.9% 500 ML 500 ML with niCARdipine 6.25 MG, NITROGLYCERIN-D5W PMX 0.05... IV ONE (09:15)
[2024-06-18] MEDS: HEPARIN SODIUM 1,000 UN/ML (10ML VL) IVP ONE (09:27)
[2024-06-18] MEDS: IOPAMIDOL-370 100ML BTL INJ ONE (10:16)
--- NOTE | 2024-06-18 10:57 | P.OP ---
Date of Procedure: 06/18/24 Description of Procedure: Preoperative diagnosis: [place] 3 lifestyle limiting claudication right lower extremity, previous stent reocclusion Postoperative diagnosis: Same Procedure: #1 ultrasound-guided left common femoral artery access 2. Left iliofemoral angiogram 3. Selective right lower extremity angiogram third order to the distal popliteal artery, below-knee 4. Percutaneous transluminal balloon angioplasty 6 x 120, 6 x 60, 7 x 40, 8 x 60 with distal embolic protection 5. Percutaneous transluminal stent placement, 7 x 100, 8 x 120, 8 x 100 Zilver 6. Moderate conscious sedation with personal monitoring certified RN administration with personal hemodynamic monitoring 75 minutes Surgeon: Angelina Serna D.O. EBL: Less than 10 cc IV fluids: See records Urine output: Not measured Drains: None Complications: None immediately apparent Condition: Stable to recovery Operative indication and findings: Patient is a 68-year-old male who back in 2019 had a right superficial femoral artery stent placed out in [place]. Relatively shortly thereafter began having worsening pain of his lower extremity with ambulation but has not had any able to be done about it until this time. He was previously seen for diagnostic angiogram which showed recurrent occlusion as well as occlusion proximally and distally to the stent itself. The plan was today for presented revascularization with balloon stenting. He seems understood and is willing to proceed. Procedure in detail: Patient brought to the special suite placed in supine position. The bilateral groins were prepped and draped in usual sterile fashion as well as the distal right ankle. He also was utilized and the left common femoral artery was identified. The skin overlying was anesthetized with 1% lidocaine plain. Using Seldinger technique and a micro access needle, the artery was accessed. Permanent image was stored. A 6 Guamanian sheath was eventually placed. Left iliofemoral angiogram was performed showing mild stenosis of the left common iliac artery with otherwise patent external iliac and femoral vessels. Catheters and wires were then used to select the right lower extremity. Initial right lower extremity angiogram was performed for the course. The wire and catheter were advanced to the level of the occlusion and repeat imaging had a performed showing similar runoff to previous images. The wire was exchanged for a glide advantage and the sheath was exchanged for an up and over 55 cm 6 Guamanian Mario. Utilizing crossing catheter and wire, the area of occlusion was traversed. Catheter was then placed in the distal below-knee popliteal artery and luminal gain was confirmed with similar runoff to previous. At that point decision was made to place a 6 Guamanian spider as distal embolic protection device due to this being in-stent reocclusion. A balloon angioplasty was done through the tract with a 6 x 120 chocolate balloon. Then more proximally with a larger size for sizing and visualization. A 7 x 100 Zilver stent was then placed distally followed by an 8 x 120 Zilver stent traversing the previously placed stents. These areas were then ballooned with an 8 x 60 balloon. The spider wire was removed, initial attempts were to do so through a catheter however there was resistance and therefore the entirety of catheter and wire were removed. There was a moderate amount of calcium in the embolic protection device. Wire access was then regained traversing the areas and images performed. The proximal superficial femoral artery just proximal to the previous stents did have some boulders of calcium and due to the location the decision was made to place a further stent traversing this area. There was some kinking to the proximal previously placed stent therefore a 7 x 40 balloon was used to open this and again reconfirm luminal gain. The 8 x 100 Zilver was then placed in balloon within a 60 balloon. An image was performed showing adequate contrast with quick washing throughout. The patient has palpable DP and PT at the conclusion of the procedure. Catheters and wires were then removed, the sheath was pulled back to the level of the femoral vessel and exchanged for a short sheath. Manual pressure was held until hemostasis adequate. Patient tolerated the procedure well
[2024-06-18 15:08] VITALS: BP 116/57; PULSE 54
[2024-06-18] MEDS: ACETAMINOPHEN TAB 325 MG TAB PO STA (16:46)
--- NOTE | 2024-06-22 12:35 | IR ---
EXAMINATION TYPE: IR stent intravas non coronary DATE OF EXAM: 06/22/2024 CLINICAL INDICATION: Male, 68 years old with history of right leg pain, min fluoro, Gycm2, TECHNIQUE: Fluoroscopy. COMPARISON: None. FINDINGS: Fluoroscopic guidance was provided during angiogram and stent insertion procedure performe d by Dr. Serna. A total of 18.4 minutes of fluoroscopic time was utilized during the procedure and 8 92 spot images are acquired. Please refer to procedure note for further details of necessary. TOTAL DAP = 10.2 Gy x cm2. IMPRESSION: As Above. [facility], , 06/22/2024 12:33 PM
== END 2024-06-18 17:09 | disposition home or self-care (01) ==
LOC: CATHCVL 07:04
PROVIDERS: ATTEND Surgery
DX: I70.211 Atherosclerosis of native arteries of extremities with intermittent claudication, right leg (principal)
CPT/HCPCS: 37226; 75710; 80048; 85025; C1769 ×4; C1894 ×2; C1725 ×5; C1887; C1884; C1874 ×2; J2250; J1644 ×2; J2003; J3010; Q9967

== ENCOUNTER → 2024-06-25 | Outpatient (CLI) | payer MEDICARE ==
[2024-06-25 14:54] LABS: ALT 20 U/L (10-49); AST 19 U/L (14-35); Albumin 4.1 g/dL (3.8-4.9); Albumin/Globulin Ratio 1.58 Ratio (1.60-3.17); Alkaline Phosphatase 87 U/L (41-126); Blood Urea Nitrogen 15.1 mg/dL (9.0-27.0); Calcium 9.2 mg/dL (8.7-10.3); Carbon Dioxide 21.3 mmol/L (21.6-31.8); Chloride 109 mmol/L (96-109); Chol/HDL Ratio 3.49 Ratio; Globulin 2.6 g/dL (1.6-3.3); Glucose 93 mg/dL (70-110); LDL Cholesterol,Calculated 51.4 mg/dL (0.0-131.0); Potassium 4.4 mmol/L (3.5-5.5); Sodium 142 mmol/L (135-145); Total Bilirubin 0.5 mg/dL (0.3-1.2); Total Protein 6.7 g/dL (6.2-8.2); VLDL Calculation 18.54 mg/dL (5.00-40.00)
== END | disposition home or self-care (01) ==
LOC: LABWHC1 07:50
PROVIDERS: ATTEND Internal Medicine Interventional Cardiology
DX: E78.2 Mixed hyperlipidemia (principal)
CPT/HCPCS: 36415; 80053; 80061

== ENCOUNTER → 2024-10-19 | Outpatient (CLI) | payer MEDICARE ==
--- NOTE | 2024-10-19 18:21 | XR ---
EXAMINATION TYPE: XR chest 2V DATE OF EXAM: 10/19/2024 11:31 AM COMPARISON: None. CLINICAL INDICATION: Male, 69 years old with history of J06.9 ACUTE UPPER RESPIRATORY INFECTION, UNSP ECIFIED, TECHNIQUE: XR chest 2V view(s) obtained. FINDINGS: The heart size is normal. The pulmonary vasculature is normal. The lungs are clear. IMPRESSION: 1. No acute pulmonary process. [facility], Workstation: [facility], 10/19/2024 6:18 PM
== END | disposition home or self-care (01) ==
LOC: RADXRMAIN 11:07
PROVIDERS: ATTEND Internal Medicine Geriatric Medicine
DX: J06.9 Acute upper respiratory infection, unspecified (principal)
CPT/HCPCS: 71046